=== PATIENT | female | born 1985 | race Two or more races ===

== ENCOUNTER 2017-08-03 13:56 | Inpatient (IN) | payer MEDICARE ==
[2017-08-03] MEDS ORDERED: SODIUM CHLORIDE 1,000 ML IV SCH (15:15)
--- NOTE | 2017-08-03 15:43 | PDOC ---
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 The patient states that she had a sudden onset, 10/10 headache which is present all over her head and she cannot describe it. She associates it with 3 bouts of vomiting, dizziness which she describes as room spinning, and blurred vision during the episodes of vomiting. She states the headache is primarily in the frontal area bilaterally. The patient also states that she feels weakness and pain throughout her body. tPA Exclusion Checklist 0-3hr - Time Elapsed Date last known well: 08/03/17 Time last known well: 12:45 Elaspsed time: Day(s) and 7 Hour(s) and 48 Minutes - Thrombolytic Therapy Candidate Is the patient eligible for Thrombolytic Therapy?: No - Exclusion Criteria 0-3hr SBP greater than 185 or DBP greater than 110mmHg despite tx: No Recent IC/spinal surgery,head trauma or stroke w/in last 3mo: No Hx of previous IC hemorrhage, IC neoplasm, AVM or aneurysm: No Active internal bleeding: No Blding diathesis(low plt ct, inc PTT,INR>1.7 or use of NOAC): No Symptoms suggest subarachnoid hemorrhage: No CT demonstrates multilobar infarct(>1/3 cerebral hemiphere): No Arterial puncture at noncompressible site in previous 7 days: No Blood glucose concentration less than 50mg/dL (2.7mmol/L): No - Relative Exclusion Criteria 0-3h Life expectancy <1yr/severe co-morbid illness/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 STILL on admit: No : No Patient/family refused: No Rapid improvement: Yes Stroke severity too mild: No Recent acute UT (w/in previous 3 months): No Seizure at onset with postictal residual neuro impairments: No Major surgery or serious trauma w/in previous 14 days: No Recent GI or hemorrhage (w/in previous 21 days): No - Ineligibility reason(s) Reasons No tPA given: See reason(s) noted above NIH Stroke Scale - Last Known Well Date/Time & Onset Date Last Known Well: 08/03/17 Time Last Known Well: 12:45 - Initial Evaluation Level of consciousness: Alert Ask patient the month and their age: Answers both correctly Ask patient to open & close eyes; make fist and let go: Obeys both correctly Best gaze (horizontal eye movement): Normal Visual field testing: No visual field loss Facial paresis (Show teeth/raise eyebrows/close eyes tight): Normal symmetrical movement Motor Function: Left Arm: Normal Motor Function: Right Arm: Normal (extends arm 90 (or 45) degrees for 10 seconds without drift Motor Function: Left Leg: Some effort against gravity Motor Function: Right Leg: Some effort against gravity Limb Ataxia: No ataxia Sensory(Use pinprick test arms,legs,trunk,face/side to side): Mild to moderate decrease in sensation Best language (Describe picture, name items, read sentences): No Aphasia Dysarthria (read several words): Normal articulation Extinction and Inattention: No abnormality - Total Score NIH Stroke Scale Score: 5 Past History - Past Medical History Allergies/Adverse Reactions: Allergies Allergy/AdvReac Type Severity Reaction Status Date / Time No Known Allergies Allergy Verified 08/03/17 14:11 Home Medications: Ambulatory Orders NK [No Known Home Medication] 08/03/17 COPD: No - Suicide/Smoking/Psychosocial Hx Smoking History: Never smoked Have you smoked in the past 12 months: No Information on smoking cessation initiated: No Hx Alcohol Use: No Drug/Substance Use Hx: No Substance Use Type: None Review of Systems - Review of Systems Able to Perform ROS?: Yes Comments:: 08/03/17 15:58 GENERAL/CONSTITUTIONAL: No fever or chills. No weakness. HEAD, EYES, EARS, NOSE AND THROAT: Positive for blurred vision. No ear pain or discharge. No sore throat. CARDIOVASCULAR: No chest pain, palpitations, or lightheadedness. RESPIRATORY: No cough, wheezing, shortness of breath, or hemoptysis. GASTROINTESTINAL: Positive for vomiting. No diarrhea, constipation, or abdominal pain. GENITOURINARY: No dysuria, frequency, hematuria, or change in urination. MUSCULOSKELETAL: No joint or muscle swelling or pain. No neck or back pain. SKIN: No rash or lesions. NEUROLOGIC: Positive for headache, generalized weakness, dizziness, and numbness. No tingling, weakness, loss of consciousness, or change in strength/ sensation. ENDOCRINE: No increased thirst. No abnormal weight change. HEMATOLOGIC/LYMPHATIC: No anemia, easy bleeding, or history of blood clots. ALLERGIC/IMMUNOLOGIC: No hives or skin allergy. Is the patient limited Maori proficient: No *Physical Exam - Vital Signs Last Vital Signs Temp Pulse Resp BP Pulse Ox 98.6 F 97 H 16 101/57 99 08/03/17 14:02 08/03/17 14:02 08/03/17 14:02 08/03/17 14:02 08/03/17 14:02 - Physical Exam Comments: 08/03/17 16:13 GENERAL: Well developed, well nourished. Awake and alert. No acute distress. HEENT: Normocephalic, atraumatic. Hearing grossly normal. Moist mucous membranes. PERRLA, EOMI. No conjunctival pallor. Sclera are non-icteric. Oropharynx is clear. NECK: Supple. Full ROM. No JVD. CARDIOVASCULAR: Regular rate and rhythm. No murmurs, rubs, or gallops. PULMONARY: No evidence of respiratory distress. Lungs clear to auscultation bilaterally. No wheezing, rales or rhonchi. ABDOMINAL: Soft. Non-tender. Non-distended. No rebound or guarding. GENITOURINARY: No CVA tenderness bilaterally. MUSCULOSKELETAL: Normal range of motion at all joints. No bony deformities or tenderness. EXTREMITIES: No cyanosis. No clubbing. No edema. No calf tenderness. SKIN: Warm and dry. Normal capillary refill. No rashes. No jaundice. NEUROLOGICAL: Alert, awake, appropriate. Cranial nerves 2-12 intact. Decreased sensation in L hand. B/l 4/5 LE strength. Finger to nose normal bilaterally. Normal speech. Gait is normal without ataxia. PSYCHIATRIC: Cooperative. Good eye contact. Appropriate mood and affect. Procedures - Lumbar Puncture Indication: Meningitis, Subarachnoid Hemmorhage CT Scan: Yes Betadine Prep: No Position: Left lateral decubitus Site: L4-L51 Local Anesthesia: 1% Lidocaine with epi Lumbar Puncture Kit: Adult Traumatic Tap: Yes Tubes Obtained: 4 Clear Fluid: Yes Complications: No ED Treatment Course - LABORATORY CBC & Chemistry Diagram: 08/03/17 15:49 08/03/17 15:49 - RADIOLOGY Radiology Studies Ordered: Category Date Time Status HEAD CT (STROKE) [CT] Stat CT Scan 08/03/17 15:11 Completed Medical Decision Making - Medical Decision Making 08/03/17 15:45 The patient is a 31F with no PMH who presents to the ER with an acute onset headache. The patient had a difference in sensation and b/l LE weakness in addition to a headache. Code miles was called as the patient had her sudden onset symptoms 2 hours prior to presentation. CTH was negative for acute pathology. 08/03/17 16:52 Dr. Jerez recommends giving the patient 30 IV toradol, 10 IV compozine, and 25 IV benadryl w/ MRI and MRA of brain. Pt states that her symptoms have resolved but her headache is unchanged. Will perform LP to r/o meningitis and subarachnoid. 08/03/17 20:08 LP performed without complications. Tubes labeled and orders placed. 08/03/17 20:22 Hospitalist microblogged for admission. 08/03/17 20:33 I have endorsed the patient to Dr. Mills for obs-tele stroke admission. *DC/Admit/Observation/Transfer Diagnosis at time of Disposition: Headache Qualifiers: Headache type: other headache syndrome Qualified Code(s): G44.89 - Other headache syndrome - Discharge Dispostion Condition at time of disposition: Stable Admit: Yes - Referrals - Patient Instructions - Post Discharge Activity
[2017-08-03] MEDS ORDERED: ACETAMINOPHEN 1000 MG/100 ML VIAL (NON FORMULARY) IVPB ONE (15:51)
[2017-08-03] MEDS ORDERED: METOCLOPRAMIDE HCL INJECTION 10 MG/2 ML VIAL IVPB ONE (15:51)
[2017-08-03] MEDS ORDERED: SODIUM CHLORIDE 0.9% 1000 ML INFUS.BAG IV ONE (15:51)
[2017-08-03] MEDS ORDERED: ACETAMINOPHEN INJECTION 100 ML IVPB ONE (16:01)
[2017-08-03] MEDS ORDERED: METOCLOPRAMIDE HCL INJECTION 10 MG/2 ML VIAL ONE (16:01)
[2017-08-03 16:28] LABS: BASO % 0.3 % (0-2.0); EOS % 0.2 % (0-4.5); HEMATOCRIT 33.6 % (32.4-45.2); HEMOGLOBIN 11.5 GM/dL (10.7-15.3); INR 1.12 (0.82-1.09); LYMPH % 4.1 % (8-40); MCH 27.5 pg (25.7-33.7); MCHC 34.3 g/dl (32.0-36.0); MEAN CELL VOLUME 80.2 fl (80-96); MEAN PLT VOLUME 9.2 fl (7.5-11.1); MONO % 3.7 % (3.8-10.2); NEUT % 91.7 % (42.8-82.8); PLATELET COUNT 191 K/MM3 (134-434); PROTHROMBIN TIME (PATIENT) 12.6 SEC (9.98-11.88); RBC 4.19 M/mm3 (3.60-5.2); RDW 17.9 % (11.6-15.6); WHITE BLOOD COUNT 6.9 K/mm3 (4.0-10.0)
[2017-08-03 16:33] LABS: ALBUMIN 3.9 g/dl (3.4-5.0); ANION GAP 6 (8-16); BLOOD UREA NITROGEN 17 mg/dL (7-18); CALCIUM 9.3 mg/dL (8.5-10.1); CHLORIDE 108 mmol/L (98-107); CHOLESTEROL 219 mg/dL (50-200); CO2 23 mmol/L (21-32); CREATININE 0.7 mg/dL (0.55-1.02); GLUCOSE,RANDOM 96 mg/dL (74-106); POTASSIUM 3.5 mmol/L (3.5-5.1); SGOT/AST 24 U/L (15-37); SGPT/ALT 30 U/L (12-78); SODIUM 137 mmol/L (136-145); TRIGLYCERIDES 51 mg/dL (35-160)
[2017-08-03 16:35] LABS: URINE APPEARANCE CLEAR; URINE BILIRUBIN NEGATIVE (<2.0 mg/dL); URINE BLOOD NEGATIVE (NEGATIVE); URINE COLOR LTYELLOW; URINE GLUCOSE (UA) NEGATIVE (NEGATIVE); URINE KETONE TRACE (NEGATIVE); URINE LEUK ESTERASE TRACE (NEGATIVE); URINE NITRITE NEGATIVE (NEGATIVE); URINE PROTEIN NEGATIVE (NEGATIVE); URINE UROBILINOGEN NEGATIVE mg/dL (0.2-1.0)
[2017-08-03 16:35] LABS: ALK PHOS 64 U/L (45-117); BILIRUBIN,TOTAL 0.4 mg/dL (0.2-1.0); HDL CHOLESTEROL 117 mg/dL (40-60); LDL CHOLESTEROL (ONLY SJRH) 102 mg/dL (5-100); TOT PROT 7.8 g/dl (6.4-8.2)
[2017-08-03 16:45] LABS: EPI CELLS RARE /HPF (FEW); URINE MUCUS RARE
--- NOTE | 2017-08-03 17:05 | PDOC ---
Attending Attestation - Resident Resident Name: Seth Heck - ED Attending Attestation I have performed the following: I have examined & evaluated the patient, The case was reviewed & discussed with the resident, I agree w/resident's findings & plan, Exceptions are as noted <Monse Atwood - Last Filed: 08/03/17 17:05> - HPI HPI: 08/03/17 17:28 The patient is a 31 year old female, with no significant past medical history, who presents to the emergency department with sudden onset of a headache at approximately 12:00 today. The patient reports her headache is a diffuse throbbing, which she rates a 10/10. She states it was worse at onset and has tapered off since then to a 8/10. She reports associated diffuse body aches, room spinning dizziness, blurry vision, nausea, one episode of vomiting( nonbloody/nonbilious), and numbness in her fingertips. She denies any changes in gait, changes in speech, or focal weakness. She denies any fever or chills. Denies stiff neck, rashes. She denies any chest pain, shortness of breath, diaphoresis, or palpitations. She denies any abdominal pain, diarrhea, constipation, or changes in bladder/bowel habits. She denies any recent travel or sick contacts. Patient reports she's had a CT scan for similar symptoms in the past, which was negative. She has never had an LP for similar headaches in the past. Pt initially reported L hand numbness which she states has since resolved on its own after 30 mins. Given the initial complaint of L hand numbness, a code lopez was activated. - Physicial Exam PE: 08/03/17 17:29 GENERAL: Awake, alert, and fully oriented, in no acute distress HEAD: No signs of trauma EYES: PERRLA, EOMI, sclera anicteric, conjunctiva clear ENT: Auricles normal inspection, hearing grossly normal, nares patent, oropharynx clear without exudates. Moist mucosa NECK: Normal ROM, supple, no lymphadenopathy, JVD, or masses. No evidence of meningismus. LUNGS: Breath sounds equal, clear to auscultation bilaterally. No wheezes, and no crackles HEART: Regular rate and rhythm, normal S1 and S2, no murmurs, rubs or gallops ABDOMEN: Soft, nontender, normoactive bowel sounds. No guarding, no rebound. No masses EXTREMITIES: Normal range of motion, no edema. No clubbing or cyanosis. No cords, erythema, or tenderness BACK: No midline spinal tenderness in cervical/thoracic/lumbar region NEUROLOGICAL: Normal speech, cranial nerves intact, negative pronator drift, 5/ 5 strength in all 4 extremities, normal sensation to light touch in all 4 extremities, normal cerebellar exam, normal gait, normal reflexes and tone SKIN: Warm, Dry, normal turgor, no rashes or lesions noted. - Medical Decision Making 08/03/17 17:29 Documentation prepared by Vaibhav Suarez, acting as health care / medical job titles for Mnose Atwood MD. <Vaibhav Suarez - Last Filed: 08/03/17 17:49> ED Treatment Course - LABORATORY CBC & Chemistry Diagram: 08/03/17 15:49 08/03/17 15:49 - ADDITIONAL ORDERS Additional order review: Laboratory Results 08/03/17 08/03/17 08/03/17 16:00 15:49 15:49 PT with INR INR Sodium 137 Potassium 3.5 Chloride 108 H Carbon Dioxide 23 Anion Gap 6 L BUN 17 Creatinine 0.7 Creat Clearance w eGFR > 60 Random Glucose 96 Calcium 9.3 Total Bilirubin 0.4 AST 24 ALT 30 Alkaline Phosphatase 64 Creatine Kinase 202 H Creatine Kinase Index 0.5 CK-MB (CK-2) 1.087 Troponin I < 0.02 Total Protein 7.8 Albumin 3.9 Triglycerides 51 Cholesterol 219 H Total LDL Cholesterol 102 H HDL Cholesterol 117 H Serum , Qual Negative Urine Color Ltyellow Urine Appearance Clear Urine pH 7.0 Ur Specific [place] 1.013 Urine Protein Negative Urine Glucose (UA) Negative Urine Ketones Trace H Urine Blood Negative Urine Nitrite Negative Urine Bilirubin Negative Urine Urobilinogen Negative Ur Leukocyte Esterase Trace Urine WBC (Auto) 2 Urine RBC (Auto) None Ur Epithelial Cells Rare Urine Mucus Rare 08/03/17 15:49 PT with INR 12.60 H INR 1.12 Sodium Potassium Chloride Carbon Dioxide Anion Gap BUN Creatinine Creat Clearance w eGFR Random Glucose Calcium Total Bilirubin AST ALT Alkaline Phosphatase Creatine Kinase Creatine Kinase Index CK-MB (CK-2) Troponin I Total Protein Albumin Triglycerides Cholesterol Total LDL Cholesterol HDL Cholesterol Serum , Qual Urine Color Urine Appearance Urine pH Ur Specific [place] Urine Protein Urine Glucose (UA) Urine Ketones Urine Blood Urine Nitrite Urine Bilirubin Urine Urobilinogen Ur Leukocyte Esterase Urine WBC (Auto) Urine RBC (Auto) Ur Epithelial Cells Urine Mucus 08/03/17 15:49 RBC 4.19 MCV 80.2 MCHC 34.3 RDW 17.9 H MPV 9.2 Neutrophils % 91.7 H Lymphocytes % 4.1 L Monocytes % 3.7 L Eosinophils % 0.2 Basophils % 0.3 - RADIOLOGY Radiograph Interpretation: 08/03/17 17:48 EXAM: Head CT INTERPRETED BY: Dr. Muller REVIEWED BY: Dr. Atwood IMPRESSION: No gross acute intracranial pathology is identified. Correlating 20 to determine further evaluation and follow-up. Questionable partially included small polyp along posterior margin of the left inferior nasal turbinate for which ENT evaluation is needed. - Medications Given in the ED: ED Medications Discontinued Medications Generic Name Dose Route Start Last Admin Trade Name Freq PRN Reason Stop Dose Admin Acetaminophen 1,000 mg 08/03/17 15:51 08/03/17 16:10 Ofirmev Injection - IVPB 08/03/17 15:52 1,000 mg ONCE ONE Administration Metoclopramide HCl 10 mg 08/03/17 15:51 08/03/17 16:10 Reglan Injection - IVPB 08/03/17 15:52 10 mg ONCE ONE Administration Sodium Chloride 1,000 ml 08/03/17 15:51 08/03/17 16:10 Normal Saline - IV 08/03/17 15:52 1,000 ml ONCE ONE Administration <Vaibhav Suarez - Last Filed: 08/03/17 17:49>
--- NOTE | 2017-08-03 18:46 | CON.NEURO ---
Consult - Alcohol/Substance Use Hx Alcohol Use: No - Smoking History Smoking history: Never smoked Have you smoked in the past 12 months: No Home Medications - Allergies Allergies/Adverse Reactions: Allergies Allergy/AdvReac Type Severity Reaction Status Date / Time No Known Allergies Allergy Verified 08/03/17 14:11 - Home Medications Home Medications: Ambulatory Orders NK [No Known Home Medication] 08/03/17 Physical Exam-Neuro Vital Signs: Vital Signs Temperature 99.1 F 08/03/17 18:10 Pulse Rate 109 H 08/03/17 18:10 Respiratory Rate 16 08/03/17 18:10 Blood Pressure 111/71 08/03/17 18:10 O2 Sat by Pulse Oximetry (%) 98 08/03/17 18:10 Labs: CBC, BMP 08/03/17 15:49 08/03/17 15:49 INR, PTT INR 1.12 (0.82-1.09) 08/03/17 15:49 Assessment/Plan CC severe sudden onset headahce for one day duration HPI 31 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 She came to hospital for sudden severe headhace , throbbing , 01/30. She do have spinning room sensaiton, whole body hurting, blurrinv vision, nasuea , and numbness in her finger tips. She denies any trauma, fever or cancer. Patient has ct scan and it was unremarkable. Her nih score was thought to be 5 and her symptoms resolved. She has similar symptoms in [place] Past Medical History as above ROS,SH FH Reviewed in chart Neurological Examination at 5.30 pm in ed Alert follow simple and complex command, speech is normal she is oriented x 3, no neck stiffness eomi, pupils reactive, no face asymmetry moving all ext 5/5 all four extremity sensation isnormal reflex are symmetrical Neuro exam essentially normal cthead unremarkable Assessment- 31 year old female came with Severe headahce, which is quite similar to prior headhace. ct head is normal and neuro exam is normal at this time. It is possible that she may have panic reaction and have multiple focal neuro symptoms, and now resolved. Patient was examined with resident again, no evidence of nekc stiffness or fever . Unlikely to be SAH or Meningitis, Clinically most likley Acute migraine Plan- suggest to give Tylenol , iv benadryl 25 mg and compazine 10 mg iv once , as concern for possible sah - neuor check mri of brain and mra of brain can be obtained for part of work up of thunderclap , rule out any aneurysm, post fossa lesion or cerebral venous thrombosis will follow up with primary Thanking you so much
[2017-08-03 20:35] LABS: CSF APPEARANCE CLEAR; CSF COLOR COLORLESS
--- NOTE | 2017-08-03 20:42 | PN ---
Teaching Attending Note Name of Resident: Niraj Castro ATTENDING PHYSICIAN STATEMENT I saw and evaluated the patient. I reviewed the resident's note and discussed the case with the resident. I agree with the resident's findings and plan as documented. SUBJECTIVE: 31 y/o F with no PMH presented with Headache which started suddenly today accompanied with numbness. OBJECTIVE: Exam: A&Ox3, NAD HEENT: NC, PERRLA, no photofobia, MMM CVS: RRR, S1, S2 Lungs: CTA ABd: Soft, NT, BS present Ext: nl ROM, 2+ pulses CBCD WBC 6.9 K/mm3 (4.0-10.0) 08/03/17 15:49 RBC 4.19 M/mm3 (3.60-5.2) 08/03/17 15:49 Hgb 11.5 GM/dL (10.7-15.3) 08/03/17 15:49 Hct 33.6 % (32.4-45.2) 08/03/17 15:49 MCV 80.2 fl (80-96) 08/03/17 15:49 MCHC 34.3 g/dl (32.0-36.0) 08/03/17 15:49 RDW 17.9 % (11.6-15.6) H 08/03/17 15:49 Plt Count 191 K/MM3 (134-434) 08/03/17 15:49 MPV 9.2 fl (7.5-11.1) 08/03/17 15:49 CMP Sodium 137 mmol/L (136-145) 08/03/17 15:49 Potassium 3.5 mmol/L (3.5-5.1) 08/03/17 15:49 Chloride 108 mmol/L (98-107) H 08/03/17 15:49 Carbon Dioxide 23 mmol/L (21-32) 08/03/17 15:49 Anion Gap 6 (8-16) L 08/03/17 15:49 BUN 17 mg/dL (7-18) 08/03/17 15:49 Creatinine 0.7 mg/dL (0.55-1.02) 08/03/17 15:49 Creat Clearance w eGFR > 60 (>60) 08/03/17 15:49 Random Glucose 96 mg/dL (74-106) 08/03/17 15:49 Calcium 9.3 mg/dL (8.5-10.1) 08/03/17 15:49 Total Bilirubin 0.4 mg/dL (0.2-1.0) 08/03/17 15:49 AST 24 U/L (15-37) 08/03/17 15:49 ALT 30 U/L (12-78) 08/03/17 15:49 Alkaline Phosphatase 64 U/L (45-117) 08/03/17 15:49 Total Protein 7.8 g/dl (6.4-8.2) 08/03/17 15:49 Albumin 3.9 g/dl (3.4-5.0) 08/03/17 15:49 CARDIAC ENZYMES Creatine Kinase 202 IU/L (26-192) H 08/03/17 15:49 Troponin I < 0.02 ng/ml (0.00-0.05) 08/03/17 15:49 ASSESSMENT AND PLAN: Severe Headache, meningitis and SAH ruled out and admitted for observation to r/ o TIA. all symptoms resolved at this time. Stroke workup, MRI/MRA. Neurology consult. NIHSS. Sumatriptans and consider Fiorcet if no improvement.
[2017-08-03 20:44] LABS: CSF APPEARANCE HAZY; CSF COLOR COLORLESS
[2017-08-03 21:09] LABS: GLUCOSE,CSF 64 mg/dL (50-80)
--- NOTE | 2017-08-03 21:29 | PN ---
Physical Exam: SUBJECTIVE: Patient seen and examined OBJECTIVE: Vital Signs Period Temp Pulse Resp BP Sys/Christiansen Pulse Ox Last 24 Hr 98.6 F-99.1 F 97-109 16-18 101-111/57-71 98-99 GENERAL: The patient is awake, alert, and fully oriented, in no acute distress. HEAD: Normal with no signs of trauma. EYES: PERRL, extraocular movements intact, sclera anicteric, conjunctiva clear. No ptosis. ENT: Ears normal, nares patent, oropharynx clear without exudates, moist mucous membranes. NECK: Trachea midline, full range of motion, supple. LUNGS: Breath sounds equal, clear to auscultation bilaterally, no wheezes, no crackles, no accessory muscle use. HEART: Regular rate and rhythm, S1, S2 without murmur, rub or gallop. ABDOMEN: Soft, nontender, nondistended, normoactive bowel sounds, no guarding, no rebound, no hepatosplenomegaly, no masses. EXTREMITIES: 2+ pulses, warm, well-perfused, no edema. NEUROLOGICAL: Cranial nerves II through XII grossly intact. Normal speech, gait not observed. PSYCH: Normal mood, normal affect. SKIN: Warm, dry, normal turgor, no rashes or lesions noted Laboratory Results - last 24 hr 08/03/17 08/03/17 08/03/17 15:49 15:49 15:49 WBC 6.9 RBC 4.19 Hgb 11.5 Hct 33.6 MCV 80.2 MCH 27.5 MCHC 34.3 RDW 17.9 H Plt Count 191 MPV 9.2 Neutrophils % 91.7 H Lymphocytes % 4.1 L Monocytes % 3.7 L Eosinophils % 0.2 Basophils % 0.3 PT with INR 12.60 H INR 1.12 Sodium 137 Potassium 3.5 Chloride 108 H Carbon Dioxide 23 Anion Gap 6 L BUN 17 Creatinine 0.7 Creat Clearance w eGFR > 60 Random Glucose 96 Calcium 9.3 Total Bilirubin 0.4 AST 24 ALT 30 Alkaline Phosphatase 64 Creatine Kinase 202 H Creatine Kinase Index 0.5 CK-MB (CK-2) 1.087 Troponin I < 0.02 Total Protein 7.8 Albumin 3.9 Triglycerides 51 Cholesterol 219 H Total LDL Cholesterol 102 H HDL Cholesterol 117 H Serum , Qual Urine Color Urine Appearance Urine pH Ur Specific [place] Urine Protein Urine Glucose (UA) Urine Ketones Urine Blood Urine Nitrite Urine Bilirubin Urine Urobilinogen Ur Leukocyte Esterase Urine WBC (Auto) Urine RBC (Auto) Ur Epithelial Cells Urine Mucus CSF Appearance CSF Color CSF WBC CSF RBC CSF Neutrophils CSF Comment CSF Glucose CSF Total Protein Blood Type Antibody Screen 08/03/17 08/03/17 08/03/17 15:49 15:49 16:00 WBC RBC Hgb Hct MCV MCH MCHC RDW Plt Count MPV Neutrophils % Lymphocytes % Monocytes % Eosinophils % Basophils % PT with INR INR Sodium Potassium Chloride Carbon Dioxide Anion Gap BUN Creatinine Creat Clearance w eGFR Random Glucose Calcium Total Bilirubin AST ALT Alkaline Phosphatase Creatine Kinase Creatine Kinase Index CK-MB (CK-2) Troponin I Total Protein Albumin Triglycerides Cholesterol Total LDL Cholesterol HDL Cholesterol Serum , Qual Negative Urine Color Ltyellow Urine Appearance Clear Urine pH 7.0 Ur Specific [place] 1.013 Urine Protein Negative Urine Glucose (UA) Negative Urine Ketones Trace H Urine Blood Negative Urine Nitrite Negative Urine Bilirubin Negative Urine Urobilinogen Negative Ur Leukocyte Esterase Trace Urine WBC (Auto) 2 Urine RBC (Auto) None Ur Epithelial Cells Rare Urine Mucus Rare CSF Appearance CSF Color CSF WBC CSF RBC CSF Neutrophils CSF Comment CSF Glucose CSF Total Protein Blood Type O POSITIVE Antibody Screen Negative 08/03/17 08/03/17 20:09 20:13 WBC RBC Hgb Hct MCV MCH MCHC RDW Plt Count MPV Neutrophils % Lymphocytes % Monocytes % Eosinophils % Basophils % PT with INR INR Sodium Potassium Chloride Carbon Dioxide Anion Gap BUN Creatinine Creat Clearance w eGFR Random Glucose Calcium Total Bilirubin AST ALT Alkaline Phosphatase Creatine Kinase Creatine Kinase Index CK-MB (CK-2) Troponin I Total Protein Albumin Triglycerides Cholesterol Total LDL Cholesterol HDL Cholesterol Serum , Qual Urine Color Urine Appearance Urine pH Ur Specific [place] Urine Protein Urine Glucose (UA) Urine Ketones Urine Blood Urine Nitrite Urine Bilirubin Urine Urobilinogen Ur Leukocyte Esterase Urine WBC (Auto) Urine RBC (Auto) Ur Epithelial Cells Urine Mucus CSF Appearance Hazy Clear CSF Color Colorless Colorless CSF WBC 0 0 CSF RBC 450.00 5.00 CSF Neutrophils No Result Required. No Result Required. CSF Comment Tube#1 Tube#4 CSF Glucose 64 CSF Total Protein 26 Blood Type Antibody Screen Active Medications Generic Name Dose Route Start Last Admin Trade Name Freq PRN Reason Stop Dose Admin Sodium Chloride 1,000 mls @ 42 mls/hr 08/03/17 15:15 08/03/17 15:35 Normal Saline - IV 42 mls/hr ASDIR JABARI Administration ASSESSMENT/PLAN: Visit type - Emergency Visit Emergency Visit: Yes Care time: The patient presented to the Emergency Department on the above date and was hospitalized for further evaluation of their emergent condition. - New Patient This patient is new to me today: Yes Date on this admission: 08/03/17 - Critical Care Critical Care patient: No
[2017-08-03] MEDS ORDERED: ATORVASTATIN CA 80 MG TABLET (FP) PO SCH (22:00)
[2017-08-03] MEDS ORDERED: ASPIRIN 81 MG CHEWABLE TABLETS ONE (22:02)
[2017-08-03] MEDS: ASPIRIN COATED 81 MG TABLET.EC PO SCH (22:04)
--- NOTE | 2017-08-03 22:08 | HP ---
CHIEF COMPLAINT: Headache PCP: No PCP HISTORY OF PRESENT ILLNESS: 31 year old F with no pmh presented with sudden severe headache that started at 1130 am. Patient states she was at home when she had a sudden headache that was across her entire head. The headache was 10/10, nonradiating, and stabbing in nature. Patient did not take any medications and came to the ER. Patient endorses F/C/body aches, nausea, 1 episode of NB/NB emesis, and photophobia. Patient also endorsed 3 hrs of left middle three finger numbness. She denies weakness or any current numbness. Patient had a similar episode in January of last year, for which she came to the ER. She states she had a Head CT that was negative and she was d/c without follow up. ER course was notable for: (1) VS- tachycardia (2) Labs- high cholesterol (3) UA negative, LP negative Recent Travel: denies PAST MEDICAL HISTORY: denies PAST SURGICAL HISTORY: denies Social History: Smoking: denies Alcohol: denies Drugs: denies Family History: No hx of stroke or cardiac issues in the family. Allergies No Known Allergies Allergy (Verified 08/03/17 14:11) HOME MEDICATIONS: Home Medications Medication Instructions Recorded NK [No Known Home Medication] 08/03/17 REVIEW OF SYSTEMS CONSTITUTIONAL: Absent: fever, chills, diaphoresis, generalized weakness, malaise, loss of appetite, weight change HEENT: Absent: rhinorrhea, nasal congestion, throat pain, throat swelling, difficulty swallowing, mouth swelling, ear pain, eye pain, visual changes CARDIOVASCULAR: Absent: chest pain, syncope, palpitations, irregular heart rate, lightheadedness , peripheral edema RESPIRATORY: Absent: cough, shortness of breath, dyspnea with exertion, orthopnea, wheezing, stridor, hemoptysis GASTROINTESTINAL: Absent: abdominal pain, abdominal distension, nausea, vomiting, diarrhea, constipation, melena, hematochezia GENITOURINARY: Absent: dysuria, frequency, urgency, hesitancy, hematuria, flank pain, genital pain MUSCULOSKELETAL: Absent: myalgia, arthralgia, joint swelling, back pain, neck pain SKIN: Absent: rash, itching, pallor HEMATOLOGIC/IMMUNOLOGIC: Absent: easy bleeding, easy bruising, lymphadenopathy, frequent infections ENDOCRINE: Absent: unexplained weight gain, unexplained weight loss, heat intolerance, cold intolerance NEUROLOGIC: Absent: headache, focal weakness or paresthesias, dizziness, unsteady gait, seizure, mental status changes, bladder or bowel incontinence PSYCHIATRIC: Absent: anxiety, depression, suicidal or homicidal ideation, hallucinations. PHYSICAL EXAMINATION Vital Signs - 24 hr 08/03/17 08/03/17 08/03/17 14:02 18:10 19:41 Temperature 98.6 F 99.1 F Pulse Rate 97 H Pulse Rate [ 109 H 106 H Apical] Respiratory 16 16 18 Rate Blood Pressure 101/57 Blood Pressure 111/71 108/67 [Right Arm] O2 Sat by Pulse 99 98 Oximetry (%) GENERAL: Awake, alert, and fully oriented, in no acute distress. HEAD: Normal with no signs of trauma. EYES: Pupils equal, round and reactive to light, Extraocular movements intact, sclera anicteric, conjunctiva clear. No lid lag. EARS, NOSE, THROAT: Nares patent, oropharynx clear without exudates. Moist mucous membranes. NECK: Normal range of motion, supple without lymphadenopathy, JVD, or masses. No carotid bruits. No neck stiffness LUNGS: Breath sounds equal, clear to auscultation bilaterally. No wheezes, and no crackles. No accessory muscle use. HEART: tachycardic, regular rhythm, normal S1 and S2 without murmur, rub or gallop. ABDOMEN: Soft, Nontender, not distended, normoactive bowel sounds, no guarding, no rebound, no masses. No hepatomegaly or splenomegaly. MUSCULOSKELETAL: Normal range of motion at all joints. No bony deformities or tenderness. No CVA tenderness. UPPER EXTREMITIES: 2+ pulses, warm, well-perfused. No cyanosis. No clubbing. No peripheral edema. LOWER EXTREMITIES: 2+ pulses, warm, well-perfused. No calf tenderness. No peripheral edema. NEUROLOGICAL: Cranial nerves II-XII intact. Normal speech. Gait not observed. 5 /5 strength in UE/LE, 2+ reflexes, finger to nose and heel to jamil intact, Sensation intact b/l PSYCHIATRIC: Cooperative. Good eye contact. Appropriate mood and affect. SKIN: Warm, dry, normal turgor, no rashes or lesions noted, normal capillary refill. Laboratory Results - last 24 hr 08/03/17 08/03/17 08/03/17 15:49 15:49 15:49 WBC 6.9 RBC 4.19 Hgb 11.5 Hct 33.6 MCV 80.2 MCH 27.5 MCHC 34.3 RDW 17.9 H Plt Count 191 MPV 9.2 Neutrophils % 91.7 H Lymphocytes % 4.1 L Monocytes % 3.7 L Eosinophils % 0.2 Basophils % 0.3 PT with INR 12.60 H INR 1.12 Sodium 137 Potassium 3.5 Chloride 108 H Carbon Dioxide 23 Anion Gap 6 L BUN 17 Creatinine 0.7 Creat Clearance w eGFR > 60 Random Glucose 96 Calcium 9.3 Total Bilirubin 0.4 AST 24 ALT 30 Alkaline Phosphatase 64 Creatine Kinase 202 H Creatine Kinase Index 0.5 CK-MB (CK-2) 1.087 Troponin I < 0.02 Total Protein 7.8 Albumin 3.9 Triglycerides 51 Cholesterol 219 H Total LDL Cholesterol 102 H HDL Cholesterol 117 H Serum , Qual Urine Color Urine Appearance Urine pH Ur Specific [place] Urine Protein Urine Glucose (UA) Urine Ketones Urine Blood Urine Nitrite Urine Bilirubin Urine Urobilinogen Ur Leukocyte Esterase Urine WBC (Auto) Urine RBC (Auto) Ur Epithelial Cells Urine Mucus CSF Appearance CSF Color CSF WBC CSF RBC CSF Neutrophils CSF Comment CSF Glucose CSF Total Protein Blood Type Antibody Screen 08/03/17 08/03/17 08/03/17 15:49 15:49 16:00 WBC RBC Hgb Hct MCV MCH MCHC RDW Plt Count MPV Neutrophils % Lymphocytes % Monocytes % Eosinophils % Basophils % PT with INR INR Sodium Potassium Chloride Carbon Dioxide Anion Gap BUN Creatinine Creat Clearance w eGFR Random Glucose Calcium Total Bilirubin AST ALT Alkaline Phosphatase Creatine Kinase Creatine Kinase Index CK-MB (CK-2) Troponin I Total Protein Albumin Triglycerides Cholesterol Total LDL Cholesterol HDL Cholesterol Serum , Qual Negative Urine Color Ltyellow Urine Appearance Clear Urine pH 7.0 Ur Specific [place] 1.013 Urine Protein Negative Urine Glucose (UA) Negative Urine Ketones Trace H Urine Blood Negative Urine Nitrite Negative Urine Bilirubin Negative Urine Urobilinogen Negative Ur Leukocyte Esterase Trace Urine WBC (Auto) 2 Urine RBC (Auto) None Ur Epithelial Cells Rare Urine Mucus Rare CSF Appearance CSF Color CSF WBC CSF RBC CSF Neutrophils CSF Comment CSF Glucose CSF Total Protein Blood Type O POSITIVE Antibody Screen Negative 08/03/17 08/03/17 20:09 20:13 WBC RBC Hgb Hct MCV MCH MCHC RDW Plt Count MPV Neutrophils % Lymphocytes % Monocytes % Eosinophils % Basophils % PT with INR INR Sodium Potassium Chloride Carbon Dioxide Anion Gap BUN Creatinine Creat Clearance w eGFR Random Glucose Calcium Total Bilirubin AST ALT Alkaline Phosphatase Creatine Kinase Creatine Kinase Index CK-MB (CK-2) Troponin I Total Protein Albumin Triglycerides Cholesterol Total LDL Cholesterol HDL Cholesterol Serum , Qual Urine Color Urine Appearance Urine pH Ur Specific [place] Urine Protein Urine Glucose (UA) Urine Ketones Urine Blood Urine Nitrite Urine Bilirubin Urine Urobilinogen Ur Leukocyte Esterase Urine WBC (Auto) Urine RBC (Auto) Ur Epithelial Cells Urine Mucus CSF Appearance Hazy Clear CSF Color Colorless Colorless CSF WBC 0 0 CSF RBC 450.00 5.00 CSF Neutrophils No Result Required. No Result Required. CSF Comment Tube#1 Tube#4 CSF Glucose 64 CSF Total Protein 26 Blood Type Antibody Screen ASSESSMENT/PLAN: (1) Headache Rule out TIA/Stroke -Echocardiogram pending -Carotid Doppler pending -HOB 15 degrees -Neuro checks -Neuro Consult, Dr. Jerez -Hypercoagulable workup -Tylenol q4h prn -Asa 81 daily -Lipitor 80 mg po hs -Brain MRI/MRA w/o contrast -ESR to r/o temporal arteritis (2) Hyperlipidemia Continue Lipitor 80 mg po hs FEN/GI -No ivf -wnl -Cholesterol controlled diet PPx: -early ambulation Dispo: Will need stroke workup Visit type - Emergency Visit Emergency Visit: Yes ED Registration Date: 08/03/17 Care time: The patient presented to the Emergency Department on the above date and was hospitalized for further evaluation of their emergent condition. - New Patient This patient is new to me today: Yes Date on this admission: 08/04/17 - Critical Care Critical Care patient: No Hospitalist Screening - Colonoscopy Questionnaire Colonoscopy Questionnaire: Colonoscopy Questionnaire - Patient: 50 - 75 years old and never had a screening colonoscopy: Unknown History of colon or rectal polyps, or CA: Unknown History of IBD, Crohn's disease or UC: Unknown History of abdominal radiation therapy as a child: Unknown - Relative: 1 with colon or rectal CA, or polyps at age 60 or younger: Unknown Colon or rectal CA diagnosed at age 45 or younger: Unknown Multiple relatives with colon or rectal CA: Unknown - Outcome: Screening Result: Negative Screen NIH Stroke Scale - Last Known Well Date/Time & Onset Date Last Known Well: 08/03/17 Time Last Known Well: 11:30 - Initial Evaluation Level of consciousness: Alert Ask patient the month and their age: Answers both correctly Ask patient to open & close eyes; make fist and let go: Obeys both correctly Best gaze (horizontal eye movement): Normal Visual field testing: No visual field loss Facial paresis (Show teeth/raise eyebrows/close eyes tight): Normal symmetrical movement Motor Function: Left Arm: Normal Motor Function: Right Arm: Normal (extends arm 90 (or 45) degrees for 10 seconds without drift Motor Function: Left Leg: Normal (extends leg 30 degrees for 5 seconds without drift) Motor Function: Right Leg: Normal (extends leg 30 degrees for 5 seconds without drift) Limb Ataxia: No ataxia Sensory(Use pinprick test arms,legs,trunk,face/side to side): Normal Best language (Describe picture, name items, read sentences): No Aphasia Dysarthria (read several words): Normal articulation Extinction and Inattention: No abnormality - Total Score NIH Stroke Scale Score: 0
[2017-08-03] MEDS: ACETAMINOPHEN 325 MG TABLET (FP) PO PRN (23:51)
[2017-08-03] MEDS ORDERED: SUMAtriptan SUCCINATE 25 MG TABLET PO ONE (23:54)
[2017-08-04 01:48] VITALS: BMI 29.2
[2017-08-04 07:33] LABS: BASO % 0.5 % (0-2.0); HEMATOCRIT 29.7 % (32.4-45.2); HEMOGLOBIN 9.9 GM/dL (10.7-15.3); LYMPH % 11.4 % (8-40); MCHC 33.2 g/dl (32.0-36.0); MEAN CELL VOLUME 81.3 fl (80-96); MEAN PLT VOLUME 9.2 fl (7.5-11.1); MONO % 5.3 % (3.8-10.2); NEUT % 81.8 % (42.8-82.8); PLATELET COUNT 147 K/MM3 (134-434); RBC 3.65 M/mm3 (3.60-5.2); RDW 18.2 % (11.6-15.6); WHITE BLOOD COUNT 4.3 K/mm3 (4.0-10.0)
[2017-08-04 07:47] LABS: ALBUMIN 3.2 g/dl (3.4-5.0); ANION GAP 8 (8-16); BLOOD UREA NITROGEN 11 mg/dL (7-18); CALCIUM 7.9 mg/dL (8.5-10.1); CHLORIDE 113 mmol/L (98-107); CO2 20 mmol/L (21-32); GLUCOSE,RANDOM 86 mg/dL (74-106); POTASSIUM 3.8 mmol/L (3.5-5.1); SODIUM 141 mmol/L (136-145)
[2017-08-04 07:51] LABS: ALK PHOS 56 U/L (45-117); BILIRUBIN,TOTAL 0.8 mg/dL (0.2-1.0); CREATININE 0.6 mg/dL (0.55-1.02); SGOT/AST 68 U/L (15-37); SGPT/ALT 75 U/L (12-78); TOT PROT 6.2 g/dl (6.4-8.2)
[2017-08-04 09:56] LABS: ERYTHROCYTE SEDIMENTATION RATE 10 mm/hr (0-20)
[2017-08-04] MEDS: ASPIRIN COATED 81 MG TABLET.EC PO SCH (10:35)
--- NOTE | 2017-08-04 16:00 | PN ---
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 She came to hospital for sudden severe headhace , throbbing , 10/10. She do have spinning room sensaiton, whole body hurting, blurrinv vision, nasuea , and numbness in her finger tips. She denies any trauma, fever or cancer. Patient has ct scan and it was unremarkable. Initially she has focal neuro symptoms, which resolved. His mri of brain is normal and csf was normal. Mra showed small 1-2 mm aneurysm Neurological Examination Alert follow simple and complex command, speech is normal she is oriented x 3, no neck stiffness eomi, pupils reactive, no face asymmetry moving all ext 5/5 all four extremity sensation isnormal reflex are symmetrical Neuro exam essentially normal cthead unremarkable, mri fo brain is normal, mra of showed Assessment- 31 year old female came with sudden onset severe headhace, with focal neuro symptoms. Symptoms completely resolved. csf was normal , ct and mri fo brain is normal, mra showed 1-2 mm left ica aneurysm. Plan- Most likcolton it is migraine and symptoms, resolved. - Follow up outpatient - Most sanders nothing further need to be done, advice to see neurosurgeon for small aneursym, Which I think is incidental findings. Thanking you so much Jarrod Jerez MD
--- NOTE | 2017-08-04 16:33 | PN ---
Physical Exam: SUBJECTIVE: Patient seen and examined Patient has no further headache. OBJECTIVE: Vital Signs Temperature 99.9 F H 08/04/17 14:05 Pulse Rate 99 H 08/04/17 14:05 Respiratory Rate 18 08/04/17 14:05 Blood Pressure 111/66 08/04/17 14:05 O2 Sat by Pulse Oximetry (%) 98 08/03/17 18:10 GENERAL: The patient is awake, alert, and fully oriented, in no acute distress. HEAD: Normal with no signs of trauma. EYES: PERRL, extraocular movements intact, sclera anicteric, conjunctiva clear. No ptosis. ENT: Ears normal, nares patent, oropharynx clear without exudates, moist mucous membranes. NECK: Trachea midline, full range of motion, supple. LUNGS: Breath sounds equal, clear to auscultation bilaterally, no wheezes, no crackles, no accessory muscle use. HEART: Regular rate and rhythm, S1, S2 without murmur, rub or gallop. ABDOMEN: Soft, nontender, nondistended, normoactive bowel sounds, no guarding, no rebound, no hepatosplenomegaly, no masses. EXTREMITIES: 2+ pulses, warm, well-perfused, no edema. NEUROLOGICAL: Cranial nerves II through XII grossly intact. Normal speech, gait not observed. PSYCH: Normal mood, normal affect. SKIN: Warm, dry, normal turgor, no rashes or lesions noted Laboratory Results - last 24 hr 08/03/17 08/03/17 08/03/17 15:49 15:49 15:49 WBC 6.9 RBC 4.19 Hgb 11.5 Hct 33.6 MCV 80.2 MCH 27.5 MCHC 34.3 RDW 17.9 H Plt Count 191 MPV 9.2 Neutrophils % 91.7 H Lymphocytes % 4.1 L Monocytes % 3.7 L Eosinophils % 0.2 Basophils % 0.3 ESR PT with INR 12.60 H INR 1.12 Fibrinogen Sodium 137 Potassium 3.5 Chloride 108 H Carbon Dioxide 23 Anion Gap 6 L BUN 17 Creatinine 0.7 Creat Clearance w eGFR > 60 Random Glucose 96 Calcium 9.3 Total Bilirubin 0.4 AST 24 ALT 30 Alkaline Phosphatase 64 Creatine Kinase 202 H Creatine Kinase Index 0.5 CK-MB (CK-2) 1.087 Troponin I < 0.02 Total Protein 7.8 Albumin 3.9 Triglycerides 51 Cholesterol 219 H Total LDL Cholesterol 102 H HDL Cholesterol 117 H Serum , Qual Urine Color Urine Appearance Urine pH Ur Specific [place] Urine Protein Urine Glucose (UA) Urine Ketones Urine Blood Urine Nitrite Urine Bilirubin Urine Urobilinogen Ur Leukocyte Esterase Urine WBC (Auto) Urine RBC (Auto) Ur Epithelial Cells Urine Mucus CSF Appearance CSF Color CSF WBC CSF RBC CSF Neutrophils CSF Comment CSF Glucose CSF Total Protein Blood Type Antibody Screen 08/03/17 08/03/17 08/03/17 15:49 15:49 16:00 WBC RBC Hgb Hct MCV MCH MCHC RDW Plt Count MPV Neutrophils % Lymphocytes % Monocytes % Eosinophils % Basophils % ESR PT with INR INR Fibrinogen Sodium Potassium Chloride Carbon Dioxide Anion Gap BUN Creatinine Creat Clearance w eGFR Random Glucose Calcium Total Bilirubin AST ALT Alkaline Phosphatase Creatine Kinase Creatine Kinase Index CK-MB (CK-2) Troponin I Total Protein Albumin Triglycerides Cholesterol Total LDL Cholesterol HDL Cholesterol Serum , Qual Negative Urine Color Ltyellow Urine Appearance Clear Urine pH 7.0 Ur Specific [place] 1.013 Urine Protein Negative Urine Glucose (UA) Negative Urine Ketones Trace H Urine Blood Negative Urine Nitrite Negative Urine Bilirubin Negative Urine Urobilinogen Negative Ur Leukocyte Esterase Trace Urine WBC (Auto) 2 Urine RBC (Auto) None Ur Epithelial Cells Rare Urine Mucus Rare CSF Appearance CSF Color CSF WBC CSF RBC CSF Neutrophils CSF Comment CSF Glucose CSF Total Protein Blood Type O POSITIVE Antibody Screen Negative 08/03/17 08/03/17 08/04/17 20:09 20:13 06:30 WBC 4.3 D RBC 3.65 Hgb 9.9 L D Hct 29.7 L MCV 81.3 MCH 27.0 MCHC 33.2 RDW 18.2 H Plt Count 147 D MPV 9.2 Neutrophils % 81.8 Lymphocytes % 11.4 D Monocytes % 5.3 Eosinophils % 1.0 D Basophils % 0.5 ESR 10 PT with INR INR Fibrinogen Sodium Potassium Chloride Carbon Dioxide Anion Gap BUN Creatinine Creat Clearance w eGFR Random Glucose Calcium Total Bilirubin AST ALT Alkaline Phosphatase Creatine Kinase Creatine Kinase Index CK-MB (CK-2) Troponin I Total Protein Albumin Triglycerides Cholesterol Total LDL Cholesterol HDL Cholesterol Serum , Qual Urine Color Urine Appearance Urine pH Ur Specific [place] Urine Protein Urine Glucose (UA) Urine Ketones Urine Blood Urine Nitrite Urine Bilirubin Urine Urobilinogen Ur Leukocyte Esterase Urine WBC (Auto) Urine RBC (Auto) Ur Epithelial Cells Urine Mucus CSF Appearance Hazy Clear CSF Color Colorless Colorless CSF WBC 0 0 CSF RBC 450.00 5.00 CSF Neutrophils No Result Required. No Result Required. CSF Comment Tube#1 Tube#4 CSF Glucose 64 CSF Total Protein 26 Blood Type Antibody Screen 08/04/17 08/04/17 06:30 06:30 WBC RBC Hgb Hct MCV MCH MCHC RDW Plt Count MPV Neutrophils % Lymphocytes % Monocytes % Eosinophils % Basophils % ESR PT with INR INR Fibrinogen 254.0 Sodium 141 Potassium 3.8 Chloride 113 H Carbon Dioxide 20 L Anion Gap 8 BUN 11 Creatinine 0.6 Creat Clearance w eGFR > 60 Random Glucose 86 Calcium 7.9 L Total Bilirubin 0.8 D AST 68 H ALT 75 Alkaline Phosphatase 56 Creatine Kinase Creatine Kinase Index CK-MB (CK-2) Troponin I Total Protein 6.2 L Albumin 3.2 L Triglycerides Cholesterol Total LDL Cholesterol HDL Cholesterol Serum , Qual Urine Color Urine Appearance Urine pH Ur Specific [place] Urine Protein Urine Glucose (UA) Urine Ketones Urine Blood Urine Nitrite Urine Bilirubin Urine Urobilinogen Ur Leukocyte Esterase Urine WBC (Auto) Urine RBC (Auto) Ur Epithelial Cells Urine Mucus CSF Appearance CSF Color CSF WBC CSF RBC CSF Neutrophils CSF Comment CSF Glucose CSF Total Protein Blood Type Antibody Screen Active Medications Generic Name Dose Route Start Last Admin Trade Name Freq PRN Reason Stop Dose Admin Acetaminophen 650 mg 08/03/17 21:30 08/03/17 23:51 Tylenol - PO 650 mg Q4H PRN Administration PAIN LEVEL 6-10 Aspirin 81 mg 08/03/17 21:30 08/04/17 10:35 Ecotrin - PO 81 mg DAILY JABARI Administration Atorvastatin Calcium 40 mg 08/03/17 22:00 08/03/17 23:50 Lipitor - PO 80 mg HS JABARI Administration Sodium Chloride 1,000 mls @ 42 mls/hr 08/03/17 15:15 08/03/17 15:35 Normal Saline - IV 42 mls/hr ASDIR JABARI Administration Home Medications Medication Instructions Recorded NK [No Known Home Medication] 08/03/17 CT of Head: normal MRI of the head: 1-2 mm left ICA aneurysm ASSESSMENT/PLAN: Patient is a 31 year old female presented to ED. with sudden onset severe headache, with focal neurologic symptoms. # Acute Headache possible due to migraine resolved on Aspirin Px Symptoms completely resolved. s/p LP with NL csf was normal , CT of the head Normal and MRI of brain is normal and MRA showed 1-2 mm left ICA aneurysm. Neurosx was consulted as per can be discharged home once patient is evalauted by Neurosurgeon. DVT Px: early ambulation Visit type - Emergency Visit Emergency Visit: Yes ED Registration Date: 08/03/17 Care time: The patient presented to the Emergency Department on the above date and was hospitalized for further evaluation of their emergent condition. - New Patient This patient is new to me today: Yes Date on this admission: 08/04/17 - Critical Care Critical Care patient: No
[2017-08-04] MEDS ORDERED: ATORVASTATIN CA 40 MG TABLET (FP) PO SCH (16:35)
[2017-08-04] MEDS: ACETAMINOPHEN 325 MG TABLET (FP) PO PRN (19:37)
[2017-08-05] MEDS: ASPIRIN COATED 81 MG TABLET.EC PO SCH (09:28)
--- NOTE | 2017-08-05 10:15 | PN ---
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 She came to hospital for sudden severe headhace , throbbing , 10/10. She do have spinning room sensaiton, whole body hurting, blurrinv vision, nasuea , and numbness in her finger tips. She denies any trauma, fever or cancer. Patient has ct scan and it was unremarkable. Initially she has focal neuro symptoms, which resolved. His mri of brain is normal and csf was normal. Mra showed small 1-2 mm aneurysm Neurological Examination Alert follow simple and complex command, speech is normal she is oriented x 3, no neck stiffness eomi, pupils reactive, no face asymmetry moving all ext 5/5 all four extremity sensation isnormal reflex are symmetrical Neuro exam essentially normal cthead unremarkable, mri fo brain is normal, mra of showed small 1-2 mm aneurysm , Assessment- 31 year old female came with sudden onset severe headhace, ct head and mri of brain amy.l Plan- Most marilyn it is migraine and symptoms, resolved. - waiting for neurosurgery for small aneursym. - Most marilyn nothing further need to be done, advice to see neurosurgeon for small aneursym, Which I think is incidental findings. - once clear from neurosurgery advice to follow up outpatient Thanking you so much Jarrod Jerez MD
--- NOTE | 2017-08-05 11:13 | PN ---
Physical Exam: SUBJECTIVE: Patient seen and examined. She has no complaints. OBJECTIVE: Vital Signs Period Temp Pulse Resp BP Sys/Christiansen Pulse Ox Last 24 Hr 97.9 F-99.9 F 58-99 18-20 105-129/57-68 98 GENERAL: The patient is awake, alert, and fully oriented, in no acute distress. LUNGS: Breath sounds equal, clear to auscultation bilaterally, no wheezes, no crackles, no accessory muscle use. HEART: Regular rate and rhythm, S1, S2 without murmur, rub or gallop. ABDOMEN: Soft, nontender, nondistended, normoactive bowel sounds, no guarding, no rebound, no hepatosplenomegaly, no masses. EXTREMITIES: 2+ pulses, warm, well-perfused, no edema. NEUROLOGICAL: No deficits. Laboratory Results - last 24 hr 08/05/17 06:30 TSH 1.82 Free T4 0.91 Active Medications Generic Name Dose Route Start Last Admin Trade Name Freq PRN Reason Stop Dose Admin Acetaminophen 650 mg 08/03/17 21:30 08/04/17 19:37 Tylenol - PO 650 mg Q4H PRN Administration PAIN LEVEL 6-10 Aspirin 81 mg 08/03/17 21:30 08/05/17 09:28 Ecotrin - PO 81 mg DAILY JABARI Administration Atorvastatin Calcium 40 mg 08/04/17 16:35 08/04/17 21:06 Lipitor - PO 40 mg HS JABARI Administration ASSESSMENT/PLAN: This is a 31 year old woman with no significant medical history who presented to the ED with at severe headache. 1. Probable migraine headache, resolved 2. Small left ICA aneurysm - Incidental finding - Awaiting neurosurgery evaluation Visit type - Emergency Visit Emergency Visit: Yes ED Registration Date: 08/03/17 Care time: The patient presented to the Emergency Department on the above date and was hospitalized for further evaluation of their emergent condition. - New Patient This patient is new to me today: Yes Date on this admission: 08/05/17 - Critical Care Critical Care patient: No - Discharge Referral Referred to [facility] Med P.C.: No
[2017-08-06] MEDS: ACETAMINOPHEN 325 MG TABLET (FP) PO PRN (08:16)
[2017-08-06] MEDS: ASPIRIN COATED 81 MG TABLET.EC PO SCH (09:15)
--- NOTE | 2017-08-06 11:11 | PN ---
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 She came to hospital for sudden severe headhace , throbbing , 10/10. She do have spinning room sensaiton, whole body hurting, blurrinv vision, nasuea , and numbness in her finger tips. She denies any trauma, fever or cancer. Patient has ct scan and it was unremarkable. Initially she has focal neuro symptoms, which resolved. His mri of brain is normal and csf was normal. Mra showed small 1-2 mm aneurysm complain of mild neck pain Neurological Examination Alert follow simple and complex command, speech is normal she is oriented x 3, no neck stiffness eomi, pupils reactive, no face asymmetry moving all ext 5/5 all four extremity sensation isnormal reflex are symmetrical Neuro exam essentially normal cthead unremarkable, mri fo brain is normal, mra of showed small 1-2 mm aneurysm , Assessment- 31 year old female came with sudden onset severe headhace, ct head and mri of brain amy.except small aneurysm. Plan- Most likley it is migraine and symptoms, resolved. - waiting for neurosurgery for small aneursym. - Most likley nothing further need to be done, advice to see neurosurgeon for small aneursym, Which I think is incidental findings. - once clear from neurosurgery advice to follow up outpatient mild neck pain, seems to be muscular advice to take tylenol prn Thanking you so much Jarrod Jerez MD
--- NOTE | 2017-08-06 12:54 | EKG ---
Test Reason : Blood Pressure : / mmHG Vent. Rate : 100 BPM Atrial Rate : 100 BPM P-R Int : 162 ms QRS Dur : 086 ms QT Int : 354 ms P-R-T Axes : 074 076 053 degrees QTc Int : 456 ms NORMAL SINUS RHYTHM NORMAL ECG NO PREVIOUS ECGS AVAILABLE Confirmed by BRITTANY HAJI MD ([id number]) on 08/06/2017 12:54:23 PM Referred By: Confirmed By:BRITTANY HAJI MD
--- NOTE | 2017-08-06 13:45 | CONSULT ---
Consult - text type - Consultation Consultation Note: NEUROSURGERY CONSULTATION Patient is a 31 year old Latin female who has a history of migraine headaches who was admitted last week with a sudden onset severe headache. CT was negative for subarachnoid hemorrahge, however, due to the concern for aneurysmal rupture , she underwent Lumbar puncture which was also negative. The patient is awake and alert and completely neurologically nonfocal. 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 There is suggestion of a 1-2 mm infundibulum versus aneurysm at the takeoff of the Left PCOM. Although the patient is very well-appearing and the clinical suspicion for aneurysmal subarachoid hemorrhage would seem very unlikely, it cannot be excluded as a possibility. Catheter angiography (DSA) is not completely benign, however, would seem to be slightly lower risk than the chance of missing a treatable lesion in a young healthy patient. Most clinical indications suggest against this possibility, however, the association of an MRA abnormality with a vascular anomaly (absent versus hypoplastic PCOM) would merit further scrutiny. I discussed this case with several colleagues who treat aneuryms and all of them agree that DSA should at least be considered. I feel that the patient should be evaluated by Dr. Rodriguez at [facility] and would defer to his judgment as to the relative risks of DSA versus missing an aneurysm in this patient.
[2017-08-06 14:20] VITALS: BP 105/69; PULSE 74; TEMP 98.5
--- NOTE | 2017-08-06 16:21 | DS ---
Physical Exam: Selected Entries 08/06/17 08/06/17 09:00 14:00 Temperature 98.5 F Pulse Rate 74 Respiratory 20 Rate Blood Pressure 105/69 O2 Sat by Pulse 98 Oximetry (%) Oxygen Delivery Room Air Method Laboratory Tests Laboratory Tests 08/03/17 08/03/17 08/03/17 15:49 15:49 15:49 WBC Hgb Hct Plt Count PT with INR 12.60 H Fibrinogen Protein C Activity APC Resistance Protein S Antigen Free Protein S Func Antithrombin III Sodium Potassium Chloride Carbon Dioxide BUN Creatinine Creat Clearance w eGFR Troponin I < 0.02 Cholesterol 219 H Total LDL Cholesterol 102 H HDL Cholesterol 117 H TSH Free T4 Serum , Qual Negative Urine Color Urine Ketones Ur Leukocyte Esterase Urine WBC (Auto) CSF Appearance CSF Color CSF WBC CSF RBC CSF Neutrophils CSF Comment CSF Glucose CSF Total Protein Anti-Cardiolipin IgG Ab Anti-Cardiolipin IgA Ab Anti-Cardiolipin IgM Ab Prothrombin [id number] Mut Factor II DNA Comment 08/03/17 08/03/17 08/03/17 16:00 20:09 20:13 WBC Hgb Hct Plt Count PT with INR Fibrinogen Protein C Activity APC Resistance Protein S Antigen Free Protein S Func Antithrombin III Sodium Potassium Chloride Carbon Dioxide BUN Creatinine Creat Clearance w eGFR Troponin I Cholesterol Total LDL Cholesterol HDL Cholesterol TSH Free T4 Serum , Qual Urine Color Ltyellow Urine Ketones Trace H Ur Leukocyte Esterase Trace Urine WBC (Auto) 2 CSF Appearance Clear CSF Color Colorless CSF WBC 0 CSF RBC 5.00 CSF Neutrophils No Result Required. CSF Comment Tube#4 CSF Glucose 64 CSF Total Protein 26 Anti-Cardiolipin IgG Ab Anti-Cardiolipin IgA Ab Anti-Cardiolipin IgM Ab Prothrombin [id number] Mut Factor II DNA Comment 08/04/17 08/04/17 08/04/17 06:30 06:30 06:30 WBC 4.3 D Hgb 9.9 L D Hct 29.7 L Plt Count 147 D PT with INR Fibrinogen Protein C Activity 61 L APC Resistance 2.6 Protein S Antigen Pending Free Protein S 60 Func Antithrombin III Sodium Potassium Chloride Carbon Dioxide BUN Creatinine Creat Clearance w eGFR Troponin I Cholesterol Total LDL Cholesterol HDL Cholesterol TSH Free T4 Serum , Qual Urine Color Urine Ketones Ur Leukocyte Esterase Urine WBC (Auto) CSF Appearance CSF Color CSF WBC CSF RBC CSF Neutrophils CSF Comment CSF Glucose CSF Total Protein Anti-Cardiolipin IgG Ab <9 Anti-Cardiolipin IgA Ab <9 Anti-Cardiolipin IgM Ab 10 Prothrombin [id number] Mut Pending Factor II DNA Comment Pending 08/04/17 08/04/17 08/05/17 06:30 06:30 06:30 WBC Hgb Hct Plt Count PT with INR Fibrinogen 254.0 Protein C Activity APC Resistance Protein S Antigen Free Protein S Func Antithrombin III 85 Sodium 141 Potassium 3.8 Chloride 113 H Carbon Dioxide 20 L BUN 11 Creatinine 0.6 Creat Clearance w eGFR > 60 Troponin I Cholesterol Total LDL Cholesterol HDL Cholesterol TSH 1.82 Free T4 0.91 Serum , Qual Urine Color Urine Ketones Ur Leukocyte Esterase Urine WBC (Auto) CSF Appearance CSF Color CSF WBC CSF RBC CSF Neutrophils CSF Comment CSF Glucose CSF Total Protein Anti-Cardiolipin IgG Ab Anti-Cardiolipin IgA Ab Anti-Cardiolipin IgM Ab Prothrombin [id number] Mut Factor II DNA Comment Microbiology 08/03/17 20:09 Cerebral Spinal Fluid - Lumbar Puncture Gram Stain - Final 08/03/17 20:09 Cerebral Spinal Fluid - Lumbar Puncture CSF Culture - Final NO GROWTH AFTER [address]- No acute pathology Brain MRI/MRA- No mass/hydrocephalus/acute infarction/hemorrhage. 1-2 mm aneurysm vs prominent infundibulum involving the supraclinoid portion of left ICA at level of SONOGRAPHER. Carotid Doppler- No significant stenosis Echo- EF 70%. LV normal HOSPITAL COURSE: Date of Admission:08/03/17 Date of Discharge: 08/06/17 31 year old F with no pmh presented with sudden severe headache admitted for r/ o stroke/TIA. Symptoms completely resolved. LP with NL csf was normal. CT of the head Normal and MRI of brain is normal and MRA showed 1-2 mm left ICA aneurysm. Neurosx was consulted and recommended further evaluation. Patient was transferred to [facility] for further evaluation. Minutes to complete discharge: 45 Discharge Summary Reason For Visit: HEADACHE Current Active Problems Aneurysm, carotid artery, internal (Acute) Migraine (Chronic) Condition: Stable - Instructions Diet, Activity, Other Instructions: You were in the hospital for your headaches. You were found to have an aneursym of your internal carotid artery. You will be transferred to another facility for further evaluation. Continue the medications you were taking in the hospital (Aspirin, Lipitor) *If you have chest pain, shortness of breath, or any new/worsening symptoms please come back to the hospital immediately. Referrals: Haroon Thorne MD [Staff Physician] - Disposition: TRANSFER ACUTE CARE/OTHER HOSP - Home Medications Comprehensive Discharge Medication List: Ambulatory Orders Aspirin Coated [Ecotrin -] 81 mg PO DAILY tablet.ec 08/06/17 Atorvastatin Ca [Lipitor] 40 mg PO HS #0 tablet 08/06/17 This patient is new to me today: No Emergency Visit: Yes ED Registration Date: 08/03/17 Care time: The patient presented to the Emergency Department on the above date and was hospitalized for further evaluation of their emergent condition. Critical Care patient: No - Discharge Referral Referred to [facility] Med P.C.: No
--- NOTE | 2017-08-06 16:26 | PN ---
Teaching Attending Note Name of Resident: Niraj Castro ATTENDING PHYSICIAN STATEMENT I saw and evaluated the patient. I reviewed the resident's note and discussed the case with the resident. I agree with the resident's findings and plan as documented. SUBJECTIVE: Patient had headache this morning relieved by Tylenol. OBJECTIVE: Vital Signs Period Temp Pulse Resp BP Sys/Christiansen Pulse Ox Last 24 Hr 98 F-99.3 F 53-77 18-20 90-126/50-75 98-98 HEART: S1S2, RRR LUNGS: Clear ABDOMEN: Soft, non-tender, non-distended, normal BS EXTREMITIES: No edema NEUROLOGICAL: Non-focal Current Medications Generic Name Dose Route Start Last Admin Trade Name Freq PRN Reason Stop Dose Admin Acetaminophen 650 mg 08/03/17 21:30 08/06/17 08:16 Tylenol - PO 650 mg Q4H PRN Administration PAIN LEVEL 6-10 Aspirin 81 mg 08/03/17 21:30 08/06/17 09:15 Ecotrin - PO 81 mg DAILY JABARI Administration ASSESSMENT AND PLAN: This is a 31 year old woman with no significant medical history who presented to the ED with at severe headache. 1. Probable migraine headache, resolved 2. Small left ICA aneurysm - Incidental finding - Neurosurgery input appreciated - patient to be evaluated by neurosurgery at [facility] for possible catheter angiography
[2017-08-07 14:14] LABS: ACTIVATED PROTEIN C-RESISTANCE 2.6 ratio (2.2-3.5); PROTEIN C ACTIVITY 61 % (73-180); PROTEIN S, FREE 60 % (57-157)
== END 2017-08-06 17:20 | disposition short-term general hospital (02) | DRG 58 ==
LOC: JER 13:56 → JERBED 20:33 → OBSVTOIN 21:56 → MERGE 21:56 → J4W 23:39
PROVIDERS: ADMIT Internal Medicine; ATTEND Internal Medicine
PROC: 009U3ZX Drainage of Spinal Canal, Percutaneous Approach, Diagnostic (ICD-10-PCS; principal; 2017-08-03)
DX: I67.1 Cerebral aneurysm, nonruptured (principal); E78.5 Hyperlipidemia, unspecified; G43.909 Migraine, unspecified, not intractable, without status migrainosus
CPT/HCPCS: 36415; 70450-TC; 70544-TC; 70551-TC; 80053; 81003; 81015; 81240; 82465; 82550; 82553; 82945; 83718; 83721; 84157; 84439; 84443; 84478; 84484; 84703; 85025; 85300; 85303; 85305; 85306; 85307; 85384; 85610; 85651; 86850; 86900; 86901; 87070; 87205; 89050; 93005; 93010; 93306-TC; 93880-TC; 99285-25; G0378; J0131; J7030